=== PATIENT | male | born 1980 | race African-American/Black ===

== ENCOUNTER 2018-12-05 16:32 | Emergency (ER) | payer MEDICAID, OTHER ==
[~2018-12-05] VITALS: Ht 190.5 cm; Wt 74.8 kg
[~2018-12-05 16:32] MED LIST: CUPRIMINE250 MG PO; NKM; NORCO 5-325 TA1 EACH ORAL
[2018-12-05 16:41] VITALS: BP 105/72
--- NOTE | 2018-12-05 16:58 | Emergency Room Report ---
History of Present Illness General Chief Complaint: Eye Problems Source: Patient Present Illness HPI 38-year-old male with no significant past medical history here complaining of pain and swelling of her left eye. Patient denies any eye injury and reports that he usually works with a lot of dust and wiped his face with his sleeves at work. Denies blurry vision photophobia. Patient has swelling noted in the left upper eyelid and the conjunctiva is injected however minimal amount of clear discharge is noted. Denies URI symptoms, headache, periorbital pain and tenderness. Denies fever chills, shortness of breath, palpitation, abdominal pain, nausea vomiting. Has not taken any medication for his symptoms has been applying warm compress with minimal relief. Allergies: Coded Allergies: No Known Allergies (Unverified , 08/29/13) Patient History Past Medical History: see triage record Past Surgical History: unable to obtain Pertinent Family History: none Immunizations: UTD Reviewed Nursing Documentation: PMH: Agreed; PSxH: Agreed Nursing Documentation-PMH Past Medical History: No History, Except For Hx Cancer: No Hx Gastrointestinal Problems: No Hx Neurological Problems: No Review of Systems All Other Systems: negative except mentioned in HPI Physical Exam Vital Signs Date Time Temp Pulse Resp B/P (MAP) Pulse Ox O2 Delivery O2 Flow Rate FiO2 12/05/18 16:41 98.2 92 14 105/72 (83) 97 Room Air Sp02 EP Interpretation: reviewed, normal General Appearance: normal inspection, well appearing, no apparent distress, alert, GCS 15 Head: normocephalic, atraumatic Eyes: left eye other - Conjunctivae are injected as well as chalazion noted; bilateral eye normal inspection, bilateral eye PERRL ENT: normal ENT inspection, normal pharynx, other - No periorbital cellulitis noted Neck: normal inspection, supple, thyroid normal Respiratory: normal inspection, chest non-tender, lungs clear, no rhonchi, no wheezing Cardiovascular #1: no edema, no gallop, no murmur Gastrointestinal: normal inspection, non tender, soft Rectal: deferred Genitourinary: no CVA tenderness Musculoskeletal: normal inspection, back normal, digits/nails normal Neurologic: normal inspection, alert, oriented x3, responsive, lead welder III-XII nml as tested Psychiatric: normal inspection, judgement/insight normal, memory normal Skin: no rash Lymphatic: normal inspection, no adenopathy Medical Decision Making PA Attestation All my diagnosis and treatment plans were reviewed ad discussed with my supervising physician Dr. Milian Diagnostic Impression: Primary Impression: Chalazion left upper eyelid Additional Impression: Conjunctivitis ER Course 38-year-old male with no significant past medical history here complaining of pain and swelling of her left eye. Patient denies any eye injury and reports that he usually works with a lot of dust and wiped his face with his sleeves at work. Denies blurry vision photophobia. Patient has swelling noted in the left upper eyelid and the conjunctiva is injected however minimal amount of clear discharge is noted. Denies URI symptoms, headache, periorbital pain and tenderness. Denies fever chills, shortness of breath, palpitation, abdominal pain, nausea vomiting. Has not taken any medication for his symptoms has been applying warm compress with minimal relief. Ddx considered but are not limited to: bacterial conjunctivitis, allergic conjunctivitis, viral conjunctivitis, periorbital cellulitis, global trauma Vital signs: are WNL, pt. is afebrile H&PE are most consistent with: Conjunctivitis and chalazion ORDERS: Erythromycin ophthalmic ointments, polymycin eye drop ED INTERVENTIONS: None required at this time. DISCHARGE: At this time pt. is stable for d/c to home. Will provide printed patient care instructions, and any necessary prescriptions. Care plan and follow up instructions have been discussed with the patient prior to discharge. Change her pillowcase follow-up with a primary care provider if worsening symptoms return to emergency room avoid cross-contamination rubbing her eyes apply warm compress Last Vital Signs Date Time Temp Pulse Resp B/P (MAP) Pulse Ox O2 Delivery O2 Flow Rate FiO2 12/05/18 16:41 98.2 14 105/72 97 Room Air 12/05/18 16:41 92 Disposition: HOME, SELF-CARE Condition: Stable Scripts Erythromycin Base (ERYTHROMYCIN*) 3.5 Gm Oint...g. 1 APPLIC LEFT EYE TID, #3.5 GM 0 Refills Prov: Brandon Go 12/05/18 Polymyxin/Trimethoprim (Polytrim Eye Drops) 10 Ml Drops 1 DROP LEFT EYE Q4H, #10 ML Prov: Brandon Go 12/05/18 Patient Instructions: Bacterial Conjunctivitis, [id number], Chalazion Additional Instructions: Take medication as directed follow-up with your primary care provider did change her pillowcase avoid cross-contamination wear protective sunglasses Brandon Go Dec 05, 2018 16:58
[2018-12-05] MEDS ORDERED: POLYTRIM OP SOL10 ML LEFT EYE (17:00)
[2018-12-05] MEDS ORDERED: ERYTHROMYCIN3.5 GM LEFT EYE (17:00)
--- NOTE | 2018-12-05 17:00 | NUR ---
ED Nurse Note:left eye swelling and ithcing burning pain per pt. states wakes up with eye crusted over with drainage
[2018-12-05 17:10] VITALS: BP 105/72
--- NOTE | 2018-12-05 17:10 | NUR ---
ER DISCHARGE NOTE: Patient is cleared to be discharged per ERMD, pt is aox4, on room air, with stable vital signs. pt was given dc and prescription instructions, pt was able to verbalize understanding, pt id band removed without complications. pt is able to ambulate with steady gait. pt took all belongings.
== END 2018-12-05 17:20 | disposition home or self-care (01) ==
LOC: EMR 17:16
DX: H00.14 Chalazion left upper eyelid (principal); H10.9 Unspecified conjunctivitis
CPT/HCPCS: 99282

== ENCOUNTER 2019-03-01 14:06 | Emergency (ER) | payer OTHER ==
[~2019-03-01] VITALS: Ht 185.4 cm; Wt 77.1 kg
[~2019-03-01 14:06] MED LIST changes: +ERYTHROMYCIN3.5 GM LEFT EYE; +POLYTRIM OP SOL10 ML LEFT EYE
[2019-03-01 14:20] VITALS: BP 132/76
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
--- NOTE | 2019-03-01 14:33 | NUR ---
ED Nurse Note: pt went to CT by WC assisted in no changes of condition.
[2019-03-01] MEDS ORDERED: Tetanus/Diptheria/Pertussis IM ONE (15:00)
--- NOTE | 2019-03-01 15:15 | NUR ---
ED Nurse Note: pt came back from CT and taking x-ray at bedside.
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
[2019-03-01] MEDS ORDERED: IBU800 MG PO (15:52)
[2019-03-01] MEDS ORDERED: ACETAMINOPHEN-1 EAC1 ORAL (15:52)
[2019-03-01] MEDS ORDERED: AUGMENTIN 875-1 EAC1 ORAL (15:52)
[2019-03-01] MEDS ORDERED: Tylenol #3 tab (300mg/30mg) ORAL ONE (16:00)
[2019-03-01 16:16] VITALS: BP 123/86
--- NOTE | 2019-03-01 16:18 | NUR ---
ED Nurse Note: Pt cleared by health care Provider for discharge after Rt hand splint applied. DC instructions/prescription was given and explained to pt and verbalized understanding of teachings. All medical deviecs such as ID band removed. Pt is AAO x4, ambulatory and left with all personal belongings.
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
--- NOTE | 2019-03-03 11:22 | Diagnostic Imaging Report ---
Indication: Trauma, pain Technique: 3 views Comparison: none Findings: There is a comminuted fracture of the proximal first distal phalanx. This involves the articular surface, some of the fragments displaced by a few millimeters. No other acute fracture. No dislocations. The joint spaces are preserved Impression: Positive for first distal phalangeal fracture This agrees with the preliminary interpretation reported by the emergency room physician in the electronic medical record
== END 2019-03-01 16:19 | disposition home or self-care (01) ==
LOC: EMR 15:00
DX: S02.30XA Fracture of orbital floor, unspecified side, initial encounter for closed fracture (principal); S62.501A Fracture of unspecified phalanx of right thumb, initial encounter for closed fracture; S01.511A Laceration without foreign body of lip, initial encounter; S00.93XA Contusion of unspecified part of head, initial encounter; L08.9 Local infection of the skin and subcutaneous tissue, unspecified; Z23 Encounter for immunization; Y04.2XXA Assault by strike against or bumped into by another person, initial encounter; Y92.9 Unspecified place or not applicable
CPT/HCPCS: 29130; 70450; 70486; 90471; 90715; 99284